=== PATIENT | female | born 1970 | race African-American/Black ===

== ENCOUNTER 2016-08-15 17:54 | Emergency (ER) | payer OTHER ==
[~2016-08-15] VITALS: Ht 157.5 cm; Wt 108.2 kg
[~2016-08-15 17:54] MED LIST: ASCO1500 PO; CA C PO; CHOL10008 PO; iron PO; vitamin a PO
[2016-08-15 18:32] VITALS: BP 130/90; PULSE 111; RESP 14; O2SAT 100
--- NOTE | 2016-08-15 20:06 | ED.REPORT ---
HPI-Dyspnea / Wheezing Date of Service Aug 15, 2016 ED Provider: Oli Santiago MD This is a 46 year old female with a history of breast cancer s/p chemotherapy presenting to the emergency department from urgent care complaining of dyspnea that began 2 weeks ago. Dyspnea has affected ADLs, unable to walk more than 3 steps without needing to stop to catch her breath. Reports central chest tightness with exertion, productive cough with clear sputum, exacerbation of SOB by movement, and bilateral ankle swelling. Denies fever, chills, nausea, vomiting, pain in lower extremities, prolonged periods of inactivity. Recent diagnosis of cardiomegaly on 08/01/16, has been evaluated by PCP. Recently started on Lasix. 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 Nursing Notes Stated Complaint: SHORTNESS OF BREATH Chief Complaint: Respiratory Complaints Nursing Notes Reviewed: Yes Allergies: Coded Allergies: No Known Allergies (Verified Allergy, Unknown, 01/29/15) Scheduled ([iron]) 130 MG PO DAILY ([vitamin a]) PO DAILY Ascorbic Acid (Vitamin C) 1,500 Mg Tablet.er 1,500 MG PO DAILY Ca Carbonate/Vit B Comp/FA (Complex B-50 Tablet) 1 Each Tablet.er 1 EACH PO DAILY Cholecalciferol (Vitamin D3) (Vitamin D3) 1,000 Unit Tab.chew 1,000 UNIT PO DAILY Furosemide (Lasix) 40 Mg Tablet 40 MG PO DAILY General Time Seen by MD: 20:01 Chief Complaint Shortness of breath Hx Obtained From: Patient Arrived By: Walk-in Sudden in Onset?: Yes Onset Occurred: 2 days ago Symptom Duration: Since onset Severity: Current: No pain currently Pertinent Negative: Pt denies other symptoms Recent Healthcare: No recent doctor visit, No recent hospitalization Similar Sx Previous: No Past Medical History Past Medical History Breast CA (originally dx'd 07/2013, but lost to F/U, re-presented to [place] and diagsied with a [id number] Right breast/Axillary mass. 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 Physical Exam Initial Vital Signs Vital Signs (First) Date Time Temp Pulse Resp B/P Pulse Ox O2 Delivery O2 Flow Rate FiO2 08/15/16 18:32 36.7 111 14 130/90 100 Room Air Initial VS: Reviewed Head / Eyes: Atraumatic, Normocephalic, PERRL ENT: Mucous membranes moist, Conjunctiva normal, No scleral icterus Abdomen / GI: Soft, Non-tender, No guarding, No rebound, No distention Extremities: Vascular intact, Neuro intact, No tenderness Skin: Warm, Dry, No cyanosis Neurologic: Alert, Oriented, Nonfocal Psychiatric: Mood/affect normal, Behavior normal, Normal thought content General/Constitutional: Awake, Alert Neck: Atraumatic, Supple, No meningismus, Full range of motion, No swelling, Non-tender, No masses Respiratory / Chest: No wheezing Rales / Rhonchi: Positive: Rales bilateral bases Cardiovascular: No murmurs, No rubs Interpretation & Diagnostics Interpretation & Diagnostics: CHEST X-RAY IMPRESSION: Stable cardiomegaly. No acute cardiopulmonary findings. Dictated by: Rosemarie Peralta M.D. on 08/15/2016 at 21:19 Approved by: Rosemarie Peralta M.D. on 08/15/2016 at 21:20 CT ANGIOGRAM CONCLUSION: No evidence of pulmonary embolism or aortic aneurism or obvious evidence of dissection. Findings most likely due to CHF with cardiomegaly, pulmonary vascular distention, hazy groundglass opacities suspicious for edema, and right greater than left pleural effusions. Skin thickening, relatively small size and increased asymmetric density in the right breast. Correlate with any prior procedures and with exam. Lab Results Interpretation Result Diagram: 08/15/16 2100 08/15/16 2100 Test 08/15/16 21:00 White Blood Count 7.9th/mm3 (3.8-10.1) Red Blood Count 4.06mil/mm3 (3.90-5.20) Hemoglobin 10.3g/dL (12.0-15.6) Hematocrit 33.2% (35.0-46.0) Mean Corpuscular Volume 81.8fL (81-100) Mean Corpuscular Hemoglobin 25.4pg (27.0-35.0) Mean Corpuscular Hemoglobin Concent 31.0% (32.0-37.0) Red Cell Distribution Width 14.8% (12.3-15.4) Platelet Count 234bil/L (150-400) Neutrophils (%) (Auto) 57.9% (40-74) Lymphocytes (%) (Auto) 34.0% (14-46) Monocytes (%) (Auto) 5.6% (4-12) Eosinophils (%) (Auto) 1.9% (0-5) Basophils (%) (Auto) 0.3% (0-3) D-Dimer 2.5mg/L (<0.50) Sodium Level 139mEq/L (134-144) Potassium Level 3.9mEq/L (3.5-5.2) Chloride Level 100mEq/L (97-108) Carbon Dioxide Level 26mmol/L (18-29) Blood Urea Nitrogen 16mg/dL (6-24) Creatinine 1.01mg/dL (0.57-1.00) Estimat Glomerular Filtration Rate 75mL/min (>59) Glucose Level 119mg/dL (60-99) Calcium Level 9.0mg/dL (8.5-10.1) Total Bilirubin 0.5mg/dL (0.0-1.2) Aspartate Amino Transf (AST/SGOT) 27U/L (0-50) Alanine Aminotransferase (ALT/SGPT) 21U/L (0-32) Alkaline Phosphatase 75U/L (25-150) Troponin T 0.010ug/L (0.0-0.011) Pro-B-Type Natriuretic Peptide 7992pg/mL (0-249) Total Protein 6.5g/dL (6.4-8.4) Albumin 3.9g/dL (3.4-5.0) Hold Holguin Top Tube Received (Received) ECG Interpretation ECG Interpretation: Sinus tachycardia at a rate of 108 Q waves in 3, V1 Time: 20:57 Interpreted by: ED physician Re-Eval/Medical Decision Med Decision/Clinical Course 46-year-old female history of breast cancer status post chemotherapy presenting complaining of dyspnea times several weeks. Patient was reportedly diagnosed with CHF the last couple weeks with a BNP of 500. Sent in for worsening shortness of breath today. She reports she can only walk short distances before she gets short of breath. Reportedly at primary doctors she had oxygen saturation of 91% while ambulation. Oxygen here is 97% on ambulation. D-dimer 2.2. BNP 6000. Troponins negative. Chest x-ray clear. CT [place] chest no evidence of PE. Patient felt much better after receiving 1 dose of IV Lasix and was able to ambulate to the bathroom and back without any shortness of breath which is significant improvement. She reports her dyspnea resolved. Likely all due to CHF. Echocardiogram is pending for September 04. No indications for hospitalization this time. Recommend she increase her Lasix from 20 mg per day to 40 mg a day. Recommend she follow up with primary doctor in 1-2 days. Return precautions given. Re-Evaluation/Progress #1: Time of Eval: 22:52 Re-Evaluation/Progress Note: Discussed need for CT scan. Pt understands and agrees with plan, all questions addressed. Re-Evaluation/Progress #2: Time of Eval: 00:36 Re-Evaluation/Progress Note: Discussed CT results and plan for d/c, pt understands and agrees with plan, all questions addressed. Counseled Regarding: Diagnosis, Lab results, Need for follow-up, When/why to return to ED Discharge & Departure Impression: Primary Impression: CHF (congestive heart failure) Congestive heart failure type: unspecified congestive heart failure type Congestive heart failure chronicity: unspecified congestive heart failure chronicity Qualified Code: I50.9 - Heart failure, unspecified Disposition: Home Discharge Condition All VS Reviewed: Yes Condition: Stable Patient Instructions: Congestive Heart Failure (ED) Additional Instructions: Thank you for seeking care at the emergency department today. Take Lasix as prescribed. Follow up with your primary care provider, call tomorrow to schedule an appointment. Follow up with cardiology and keep your scheduled appointment for the echocardiogram. Return to the emergency department if you develop any new or worsening symptoms. Referrals: Kat German (PCP) [place] Attestation Portions of this note were transcribed by Stacie Hale. I, Dr. Santiago personally performed the history, physical exam and medical decision-making; I reviewed and confirmed the accuracy of the information in the transcribed note. Signed by Corrine Coronado, 08/15/2016 at 23:00. copies to: Kat German Ben M MD Aug 15, 2016 20:06 STACIE HALE Aug 15, 2016 20:21
[2016-08-15] MEDS ORDERED: Furosemide 10 mg/mL 2 mL Inj IVPUSH ONE (20:25)
[2016-08-15] MEDS ORDERED: Furosemide 10 mg/mL 4 mL Inj IVPUSH ONE (20:55)
[2016-08-15 21:05] VITALS: BP 125/96; PULSE 105; RESP 18; O2SAT 99
[2016-08-15 21:11] LABS: BASOPHILS % (AUTO) 0.3 % (0-3); EOSINOPHILS % (AUTO) 1.9 % (0-5); MONOCYTES % (AUTO) 5.6 % (4-12); Mean Corpuscular Hemoglobin 25.4 pg (27.0-35.0); Mean Corpuscular Volume 81.8 fL (81-100); NEUTROPHILS % (AUTO) 57.9 % (40-74); Platelet Count 234 bil/L (150-400)
--- NOTE | 2016-08-15 21:22 | DRSVH ---
PROCEDURE: X-RAY CHEST ONE VIEW, PORTABLE ([id number]) INDICATIONS: dyspnea TECHNIQUE: One view of the chest was acquired. COMPARISON: [facility], CR, XR CHEST 2VW, 08/03/2016, 11:50. FINDINGS: Surgical changes and devices: None. Lungs and pleura: No pleural effusions or pneumothorax. Lungs are clear. Mediastinum: Mediastinal contours appear normal. Heart size is large, as before. Bones and chest wall: No suspicious bony lesions. Overlying soft tissues appear unremarkable. IMPRESSION: Stable cardiomegaly. No acute cardiopulmonary findings. Dictated by: Rosemarie Peralta M.D. on 08/15/2016 at 21:19 Approved by: Rosemarie Peralta M.D. on 08/15/2016 at 21:20
[2016-08-15 21:43] LABS: TROPONIN T 0.01 ug/L (0.0-0.011)
[2016-08-16] MEDS ORDERED: FURO-128 PO (00:40)
[2016-08-16 00:59] VITALS: BP 134/76; PULSE 82; RESP 14; O2SAT 96
--- NOTE | 2016-08-16 09:27 | DRSVH ---
PROCEDURE: CT ANGIO CHEST PULMONARY EMBOLISM ([id number]) INDICATIONS: 46 year-old woman with dyspnea elevated ddimer TECHNIQUE: After the administration of intravenous contrast, 2 mm thick sections acquired from the pulmonary api álvaro to the posterior costophrenic angles. 3-dimensional maximum intensity projection (MIP) coronal a nd sagittal reformats were then acquired through the thorax. For radiation dose reduction, the follo wing was used: automated exposure control, adjustment of mA and/or kV according to patient size. COMPARISON: [facility], MR, MR BREAST BILATERAL W CAD, 04/21/2016, 11:32. [facility], CR, XR CHEST 1VW (PORTABLE), 08/15/2016, 20:26. [facility], NM, NM BONE SCAN W HOLE BODY, 01/26/2015, 15:52. [facility], CT, CHEST ANGIO-PE, 01/13/2015, 10:18. FINDINGS: Image quality: Excellent. Pulmonary arteries: Pulmonary arteries are normal in size, and demonstrate no intraluminal filling d efects to suggest central pulmonary embolism. Lungs and pleura: Bilateral groundglass infiltrates. There are small pleural effusions bilaterally, r ight greater than left. No pneumothorax. Central and peripheral airways are patent. Mediastinum: Heart size is mildly increased, without pericardial effusion. Enlarged right hilar lymp h node measures 1.6 x 2.7 cm. Thoracic aorta is normal in caliber and enhancement. Esophagus is nor mal in caliber, without hiatal hernia. Bones and chest wall: There is skin thickening and breast. There is symmetric soft tissue in the rig ht breast measuring 2.7 x 6.6 cm. No suspicious bony lesions. Ribs and thoracic spine appear intact throughout. Thyroid gland is normal. No axillary or supraclavicular adenopathy. Small normal-size d axillary lymph nodes are noted, nonspecific. Abdomen: Cholecystectomy. There is a 1.4 cm soft tissue nodule in the splenic hilum, probably a sple nule. Visualized upper abdominal solid organs appear normal in the early arterial phase of enhancemen t. IMPRESSION: 1. No evidence for central pulmonary embolism. 2. Bilateral groundglass infiltrates and pleural effusions. Differential diagnoses include pulmonary edema versus pneumonitis/pneumonia. Recommend clinical correlation. 3. Mild cardiomegaly. 4. Skin thickening and soft tissue asymmetry in right breast. Please correlate with clinical examinat ion and findings on mammography. 5. Enlarged right hilar lymph node measuring 1.6 x 2.7 cm. This finding is nonspecific and requires clinical correlation and follow up. No significant discrepancy with the shiftman radiology preliminary report. Dictated by: Tammi Lozano M.D. on 08/16/2016 at 9:14 Approved by: Tammi Lozano M.D. on 08/16/2016 at 9:25
[2016-11-13] MEDS ORDERED: DIGO125T73 PO (11:00)
[2016-11-13] MEDS ORDERED: LISI10TA PO (11:00)
[2016-11-13] MEDS ORDERED: CARV3.122 PO (11:00)
[2016-11-13] MEDS ORDERED: SPIR25TA3 PO (11:00)
== END 2016-08-16 01:01 | disposition home or self-care (01) ==
LOC: SED 17:54
DX: I50.9 Heart failure, unspecified (principal); C50.911 Malignant neoplasm of unspecified site of right female breast; I51.7 Cardiomegaly
CPT/HCPCS: 36415; 71010; 71275; 80053; 83880; 84484; 85025; 85379; 93005; 96374; 99285; J1940; Q9967